=== PATIENT | male | born 1950 | race Caucasian/White ===

== ENCOUNTER 2016-12-25 07:07 | Day surgery (SDC) | payer MEDICAID ==
[2016-12-20 13:01] VITALS: BMI 28.5
[~2016-12-25 07:07] MED LIST: LACTATED RINGERS 1,000 ML IV SCH; LIDOCAINE 1% 20 ML VIAL (10MG/ML) FOR IV START INTRADERMA PRN
[2016-12-25 07:25] VITALS: TEMP 97
[2016-12-25 07:28] LABS: Glucose,Whole Blood 72 mg/dL (75-99)
[2016-12-25] MEDS ORDERED: PROPOFOL 10 MG/ML 20 ML VIAL IV ONE (08:14)
[2016-12-25] MEDS ORDERED: LIDOCAINE 1% INJ 10MG/ML (20 ML MDV) ONE (08:14)
[2016-12-25 08:23] LABS: Glucose,Whole Blood 73 mg/dL (75-99)
--- NOTE | 2016-12-25 08:40 | P.PCN ---
Date of Procedure: 12/25/16 Procedure(s) Performed: Procedure: Total colonoscopy. Preoperative diagnosis: Screening for neoplasia, patient has history of polyps. Postoperative diagnosis: Mild diverticulosis with no evidence of acute diverticulitis, strictures, polyps or cancer. Preparation: HalfLytely prep. Sedation: Was provided by anesthesia. Brief clinical history: The patient is a 66-year-old male who is scheduled for this evaluation was screening for neoplasia because of history of polyps. His last exam was in February 2011. He has no abdominal complaints, bleeding or anemia. Procedure: With the patient on his left lateral decubitus position and after informed consent and adequate sedation, the perianal area was inspected and it did not show any fissures or fistulas. There were no masses felt on digital rectal examination. The Olympus CFQ 160L video colonoscope was then inserted in the rectum in the usual fashion and advanced to the cecum. The preparation on the right side and around the hepatic flexure was less than ideal with sticky fecal material that would not wash off totally. Diminutive polyps or superficial pathology could have been missed in that area. There were several small diverticular orifices seen scattered on the right side but I did not see any evidence of acute diverticulitis or strictures. There was no obvious polyps or tumors seen. I retroflexed endoscope in the rectum before the endoscope was withdrawn. The patient tolerated the procedure well. Plan: The patient was reassured. Discussed dietary measures. He will follow up with you as planned and I recommended repeat exam in 5 years.
[2016-12-25 08:57] VITALS: RESP 16
[2016-12-25 09:12] VITALS: BP 127/80; PULSE 62
== END 2016-12-25 09:24 | disposition home or self-care (01) ==
LOC: ORWHC2ENDO 07:07
DX: Z12.11 Encounter for screening for malignant neoplasm of colon (principal); K57.30 Diverticulosis of large intestine without perforation or abscess without bleeding; E11.9 Type 2 diabetes mellitus without complications; I10 Essential (primary) hypertension; E78.5 Hyperlipidemia, unspecified; F32.9 Major depressive disorder, single episode, unspecified; F17.200 Nicotine dependence, unspecified, uncomplicated; Z86.010 Personal history of colon polyps; Z79.84 Long term (current) use of oral hypoglycemic drugs; Z79.4 Long term (current) use of insulin; Z79.899 Other long term (current) drug therapy
CPT/HCPCS: J2001; J2704; G0105; 45378

== ENCOUNTER → 2017-07-20 | Outpatient (CLI) | payer MEDICAID ==
[2017-07-20 10:42] LABS: ALT 37 U/L (21-72); AST 21 U/L (17-59); Alkaline Phosphatase 60 U/L (38-126); Anion Gap 10 mmol/L; Blood Urea Nitrogen 13 mg/dL (9-20); Calcium 9.5 mg/dL (8.4-10.2); Carbon Dioxide 27 mmol/L (22-30); Chloride 105 mmol/L (98-107); Cholesterol 131 mg/dL (<200); Creatine Kinase 145 U/L (55-170); Glucose 121 mg/dL (74-99); HDL Cholesterol 49 mg/dL (40-60); Non-African American GFR(MDRD) >60 (>60 ml/min/1.73 sqM); Potassium 4.7 mmol/L (3.5-5.1); Sodium 142 mmol/L (137-145); Total Bilirubin 0.4 mg/dL (0.2-1.3); Total Protein 7.1 g/dL (6.3-8.2)
[2017-07-20 13:52] LABS: Hemoglobin A1C 8.5 % (4.2-6.1)
== END | disposition home or self-care (01) ==
LOC: LABWHC1 09:10
PROVIDERS: ATTEND Family Medicine
DX: E11.9 Type 2 diabetes mellitus without complications (principal); E78.00 Pure hypercholesterolemia, unspecified; M25.50 Pain in unspecified joint
CPT/HCPCS: 36415; 80053; 80061; 82550; 83036

== ENCOUNTER → 2018-08-02 | Outpatient (CLI) | payer MEDICAID ==
[2018-08-02 10:48] LABS: HCT 49.1 % (39.0-53.0); HGB 16.2 gm/dL (13.0-17.5); MCH 31.8 pg (25.0-35.0); MCV 96.4 fL (80.0-100.0); Mean Platelet Volume 6.6; Platelet Count 244 k/uL (150-450); RBC 5.09 m/uL (4.30-5.90); RDW 12.1 % (11.5-15.5); WBC 6.9 k/uL (3.8-10.6)
[2018-08-02 11:11] LABS: ALT 27 U/L (21-72); AST 19 U/L (17-59); Albumin 4.1 g/dL (3.5-5.0); Alkaline Phosphatase 57 U/L (38-126); Anion Gap 7 mmol/L; Blood Urea Nitrogen 15 mg/dL (9-20); Calcium 9.6 mg/dL (8.4-10.2); Carbon Dioxide 29 mmol/L (22-30); Chloride 106 mmol/L (98-107); Cholesterol 133 mg/dL (<200); Creatine Kinase 108 U/L (55-170); Glucose 113 mg/dL (74-99); HDL Cholesterol 41 mg/dL (40-60); LDL Cholesterol,Calculated 60 mg/dL (0-99); Potassium 4.8 mmol/L (3.5-5.1); Sodium 142 mmol/L (137-145); Total Bilirubin 0.4 mg/dL (0.2-1.3); Triglycerides 159 mg/dL (<150)
[2018-08-02 19:32] LABS: Hemoglobin A1C 7.8 % (4.0-6.0)
== END ==
LOC: LABWHC1 09:47
PROVIDERS: ATTEND Family Medicine
DX: E11.9 Type 2 diabetes mellitus without complications (principal); I10 Essential (primary) hypertension; E78.00 Pure hypercholesterolemia, unspecified; R35.1 Nocturia; M25.50 Pain in unspecified joint
CPT/HCPCS: 36415; 80053; 80061; 82550; 83036; 84153; 85027

== ENCOUNTER 2018-11-07 21:02 | Inpatient (IN) | payer MEDICARE, OTHER ==
[2018-11-07] MEDS ORDERED: DIPH,PERTUS(ACELL)TETVAC-LF 0.5 ML VIAL IM ONE (22:12)
--- NOTE | 2018-11-07 22:20 | ED ---
General Adult HPI - General Chief complaint: Fall Stated complaint: Fall, Poss broken leg, head injury Source: patient, family Mode of arrival: ambulatory Limitations: no limitations - Related Data Home Medications Medication Instructions Recorded Confirmed Insulin Glargine,Hum.rec.anlog 55 unit SQ HS 12/20/16 11/07/18 [Lantus Solostar] PARoxetine [Paxil] 20 mg PO HS 12/20/16 11/07/18 Pravastatin Sodium [Pravachol] 40 mg PO HS 12/20/16 11/07/18 metFORMIN HCL [Glucophage] 1,000 mg PO BID 12/20/16 11/07/18 Aspirin EC [Ecotrin Low Dose] 40.5 mg PO DAILY 11/07/18 11/07/18 Atenolol [Tenormin] 50 mg PO DAILY 11/07/18 11/07/18 Tamsulosin HCl [Flomax] 0.4 mg PO HS 11/07/18 11/07/18 Allergies Allergy/AdvReac Type Severity Reaction Status Date / Time No Known Allergies Allergy Verified 11/07/18 21:55 Review of Systems ROS Statement: Those systems with pertinent positive or pertinent negative responses have been documented in the HPI. ROS Other: All systems not noted in ROS Statement are negative. Past Medical History Past Medical History: Diabetes Mellitus, Hyperlipidemia, Hypertension History of Any Multi-Drug Resistant Organisms: None Reported Additional Past Surgical History / Comment(s): LUMBAR INJECTION. COLONOSCOPY Past Anesthesia/Blood Transfusion Reactions: No Reported Reaction Past Psychological History: Depression Smoking Status: Current every day smoker Past Alcohol Use History: None Reported Past Drug Use History: None Reported - Past Family History Mother Family Medical History: No Reported History General Exam Limitations: no limitations Course Vital Signs 11/07/18 11/07/18 11/07/18 21:19 22:10 23:03 Temperature 99.4 F Pulse Rate 73 68 69 Respiratory 18 20 20 Rate Blood Pressure 144/65 140/65 123/69 O2 Sat by Pulse 96 95 94 L Oximetry Medical Decision Making - Medical Decision Making Dictation was produced using [employer] dictation software. please excuse any grammatical, word or spelling errors. Chief Complaint: 68-year-old male past medical history of diabetes, hypertension, dyslipidemia presents after fall. History of Present Illness: Patient fell approximately 1 hour prior to arrival. He tripped over the curb. He states he landed on his right knee and hit his head. He tried to catch himself but wasnt able to. Patient complains of right knee pain. The ROS documented in this emergency department record has been reviewed and confirmed by me. Those systems with pertinent positive or negative responses have been documented in the HPI. All other systems are other negative and/or noncontributory. PHYSICAL EXAM: General Impression: Alert and oriented x3, not in acute distress HEENT: Superficial abrasion to the right forehead, extra-ocular movements intact , pupils equal and reactive to light bilaterally, mucous membranes moist. Cardiovascular: Heart regular rate and rhythm, S1&S2 audible, no murmurs, rubs or gallops Chest: Lungs clear to auscultation bilaterally, no rhonchi, no wheeze, no rales Abdomen: Bowel sounds present, abdomen soft, non-tender, non-distended, no organomegaly Musculoskeletal: Pulses present and equal in all extremities, no peripheral edema, abrasion to the right knee, there is significant knee swelling Motor: Power 5/5 bilaterally, no focal deficits noted Neurological: CN II-XII grossly intact, no focal motor or sensory deficits noted Skin: Multiple abrasions to the right hand Psych: Normal affect and mood ED course: 68-year-old male presents with head pain, the pain and hand pain after fall. Vital signs upon arrival are within acceptable limits. Laboratory evaluation obtained. Mild leukocytosis of 12.0. Coag panel unremarkable. Metabolic panel is negative. Knee x-ray shows patellar fracture with comminution. Computed tomography scan of the head and C-spine are unremarkable. Patient given IV analgesics. Discussed patient case with Dr. Hernández who recommends patient be admitted to his service. Patient be nothing by mouth at midnight. - Lab Data Result diagrams: 11/07/18 22:55 11/07/18 22:55 Lab Results 11/07/18 11/07/18 11/07/18 Range/Units 22:55 22:55 22:55 WBC 12.0 H (3.8-10.6) k/uL RBC 4.84 (4.30-5.90) m/uL Hgb 15.6 (13.0-17.5) gm/dL Hct 46.9 (39.0-53.0) % MCV 97.0 (80.0-100.0) fL MCH 32.3 (25.0-35.0) pg MCHC 33.3 (31.0-37.0) g/dL RDW 12.4 (11.5-15.5) % Plt Count 226 (150-450) k/uL Neutrophils % 77 % Lymphocytes % 14 % Monocytes % 5 % Eosinophils % 2 % Basophils % 1 % Neutrophils # 9.3 H (1.3-7.7) k/uL Lymphocytes # 1.7 (1.0-4.8) k/uL Monocytes # 0.6 (0-1.0) k/uL Eosinophils # 0.2 (0-0.7) k/uL Basophils # 0.1 (0-0.2) k/uL PT 10.9 (9.0-12.0) sec INR 1.0 (<1.2) Sodium 140 (137-145) mmol/L Potassium 4.1 (3.5-5.1) mmol/L Chloride 107 (98-107) mmol/L Carbon Dioxide 25 (22-30) mmol/L Anion Gap 8 mmol/L BUN 19 (9-20) mg/dL Creatinine 0.76 (0.66-1.25) mg/dL Est GFR (CKD-EPI)AfAm >90 (>60 ml/min/1.73 sqM) Est GFR (CKD-EPI)NonAf >90 (>60 ml/min/1.73 sqM) Glucose 151 H (74-99) mg/dL Calcium 9.2 (8.4-10.2) mg/dL Disposition Clinical Impression: Patellar fracture Disposition: ADMITTED IP TO THIS HOSP Condition: Fair Referrals: Anand Castro MD [Primary Care Provider] - 1-2 days Decision Time: 23:45
--- NOTE | 2018-11-07 22:47 | CT ---
EXAMINATION TYPE: CT brain francis gordon con DATE OF EXAM: 11/07/2018 COMPARISON: None HISTORY: fall, laceration to right side of forehead neck pain CT DLP: 1342.8 mGycm Automated exposure control for dose reduction was used. TECHNIQUE: CT scan of the head and cervical spine are performed without contrast. FINDINGS: Ventricles and sulci appear normal. There is no mass effect nor midline shift. There is n o sign of intracranial hemorrhage. Calvarium is intact. The cervical vertebra show normal spacing and alignment. Posterior elements are intact. Facet joints are normal for age. There is minor spur formation. The skull base is intact. There is no evidence of a fracture. IMPRESSION: Negative CT scan of the brain. Negative CT scan cervical spine. No fracture.
--- NOTE | 2018-11-07 22:49 | XR ---
EXAMINATION TYPE: XR knee complete RT DATE OF EXAM: 11/07/2018 COMPARISON: NONE HISTORY: Pain and swelling TECHNIQUE: 3 views FINDINGS: There is slight narrowing of the medial joint space. There is a transverse fracture of the inferior margin of the patella with separation of the fragments almost 3 cm. There is soft tissue swe lling. There is no knee joint effusion seen. IMPRESSION: Transverse fracture of the patella with significant separation of the fragments. There is comminution .
[2018-11-07] MEDS: MORPHINE SULFATE 4 MG/ML SYRINGE IVP PRN (22:50)
[2018-11-07 23:09] LABS: Basophils # (A) 0.1 k/uL (0-0.2); Basophils % (A) 1 %; Eosinophils # (A) 0.2 k/uL (0-0.7); Eosinophils % (A) 2 %; HCT 46.9 % (39.0-53.0); HGB 15.6 gm/dL (13.0-17.5); Lymphocytes # (A) 1.7 k/uL (1.0-4.8); Lymphocytes % (A) 14 %; MCH 32.3 pg (25.0-35.0); MCHC 33.3 g/dL (31.0-37.0); Mean Platelet Volume 6.8; Monocytes # (A) 0.6 k/uL (0-1.0); Monocytes % (A) 5 %; Neutrophils # (A) 9.3 k/uL (1.3-7.7); Neutrophils % (A) 77 %; Platelet Count 226 k/uL (150-450); RBC 4.84 m/uL (4.30-5.90); RDW 12.4 % (11.5-15.5)
[2018-11-07 23:13] LABS: Prothrombin Time 10.9 sec (9.0-12.0)
[2018-11-07 23:18] LABS: Anion Gap 8 mmol/L; Blood Urea Nitrogen 19 mg/dL (9-20); Calcium 9.2 mg/dL (8.4-10.2); Carbon Dioxide 25 mmol/L (22-30); Chloride 107 mmol/L (98-107); Glucose 151 mg/dL (74-99); Potassium 4.1 mmol/L (3.5-5.1); Sodium 140 mmol/L (137-145)
[2018-11-07] MEDS ORDERED: NALOXONE 0.4 MG/ML 1 ML VIAL IV PRN (23:41)
[2018-11-07] MEDS ORDERED: MORPHINE SULFATE 4 MG/ML SYRINGE IV PRN (23:41)
[2018-11-07] MEDS ORDERED: ONDANSETRON 4 MG/2 ML VIAL IVP PRN (23:41)
[2018-11-07] MEDS ORDERED: ACETAMINOPHEN TAB 325 MG TAB PO PRN (23:41)
[2018-11-08] MEDS: SODIUM CHLORIDE 0.9% 1,000 ML IV SCH ×2 (01:15→11:46)
[2018-11-08] MEDS: MORPHINE SULFATE 4 MG/ML SYRINGE IVP PRN ×2 (03:39→08:12)
[2018-11-08] MEDS: BACITRACIN OINT 1 EACH PACKET TOPICAL SCH ×5 (07:25→20:54)
[2018-11-08] MEDS: PANTOPRAZOLE 40 MG/10 ML VIAL IV SCH (08:29)
[2018-11-08] MEDS ORDERED: HYDROmorphone 0.5 MG/0.5 ML SYRINGE IM PRN (10:01)
--- NOTE | 2018-11-08 10:07 | P.HPOR ---
History of Present Illness H&P Date: 11/08/18 Chief Complaint: Right patella fracture Patient evaluated at bedside today, he is on the MedSurg floor. He reported to [facility] emergency room last night after falling in a parking lot [facility] [employer] [facility] He states he tripped over the curb and fell directly on the right knee. He scraped up the right hand and did hit his head. Upon arrival to the emergency room, proper imaging and lab tests were done. Images demonstrated a transverse displaced right patellar fracture. Dr. Edgar lindquist my attending physician was contacted, case was discussed. She was admitted under our care with plan for likely surgical intervention. Patient's resting comfortably, he notes pain in the right knee with movement. He has minimal discomfort to the right hand. He notes some discomfort over the forehead where he hit his head. CT showed no acute processes. Patient denies any previous surgery involving the right lower extremity. Patient currently denies any chest pain, shortness of breath, fever or chills. Review of Systems Constitutional: Reports as per HPI Past Medical History Past Medical History: Diabetes Mellitus, Hyperlipidemia, Hypertension History of Any Multi-Drug Resistant Organisms: None Reported Additional Past Surgical History / Comment(s): LUMBAR INJECTION. COLONOSCOPY Past Anesthesia/Blood Transfusion Reactions: No Reported Reaction Past Psychological History: Depression Smoking Status: Current every day smoker Past Alcohol Use History: None Reported Additional Past Alcohol Use History / Comment(s): SMOKES 1 PPD SINCE AGE 15 Past Drug Use History: None Reported - Past Family History Mother Family Medical History: No Reported History Medications and Allergies Home Medications Medication Instructions Recorded Confirmed Type Insulin Glargine,Hum.rec.anlog 55 unit SQ HS 12/20/16 11/07/18 History [Lantus Solostar] PARoxetine [Paxil] 20 mg PO HS 12/20/16 11/07/18 History Pravastatin Sodium [Pravachol] 40 mg PO HS 12/20/16 11/07/18 History metFORMIN HCL [Glucophage] 1,000 mg PO BID 12/20/16 11/07/18 History Aspirin EC [Ecotrin Low Dose] 40.5 mg PO DAILY 11/07/18 11/07/18 History Atenolol [Tenormin] 50 mg PO DAILY 11/07/18 11/07/18 History Tamsulosin HCl [Flomax] 0.4 mg PO HS 11/07/18 11/07/18 History Allergies Allergy/AdvReac Type Severity Reaction Status Date / Time No Known Allergies Allergy Verified 11/07/18 21:55 Physical Examination Right lower extremity: Small abrasion over the anterior lateral aspect of the right knee. Obvious effusion present over the knee. Patient is unable to straight leg raise. Tender with palpation of the anterior portion of the knee, especially the patella. Logroll maneuver that reproduces no pain. Plantar flexion, dorsiflexion, EHL, FHL are intact. Calf is soft, no tenderness with palpation. Sensory exam to light touch throughout the extremities intact, dorsal pedis pulses 2+. Results - Labs Labs: Abnormal Lab Results - Last 24 Hours (Table) 11/07/18 11/07/18 Range/Units 22:55 22:55 WBC 12.0 H (3.8-10.6) k/uL Neutrophils # 9.3 H (1.3-7.7) k/uL Glucose 151 H (74-99) mg/dL H & H 11/07/18 Range/Units 22:55 Hgb 15.6 (13.0-17.5) gm/dL Hct 46.9 (39.0-53.0) % Coagulation 11/07/18 Range/Units 22:55 INR 1.0 (<1.2) Result Diagrams: 11/07/18 22:55 11/07/18 22:55 - Diagnostic results Knee x-ray: report reviewed, image reviewed Assessment and Plan Plan: Imaging: Views of the right knee were reviewed, along with reports. Images demonstrate a transverse fracture involving distal pole the patella with displacement. Remaining knee joint is intact. Assessment: 1. Displaced transverse right patellar fracture 2. Status post fall from standing 3. Other medical comorbidities Plan: I was able to discuss the case, including the physical exam findings and imaging studies my attending Dr. Hernández. Our plan is to proceed with surgical intervention on 11/09/2018. We will plan to proceed with a right knee partial patellectomies with patellar tendon repair. Risks and benefits of the procedure were discussed with the patient, this including but not excluding infection, blood loss, pain and stiffness, malunion of bone, and nonunion of bone, need for further surgery, blood clot development. Patient is in good understanding and would like to proceed with surgery. Obtain consent Nothing by mouth after midnight Nonweightbearing right lower extremity Pain control GI and DVT prophylaxis per medical recommendations Further recommendations to follow Time with Patient: Less than 30
[2018-11-08] MEDS: NICOTINE 21MG/24HR PATCH TRANSDERM SCH (11:45)
--- NOTE | 2018-11-08 12:50 | P.HPIM ---
History of Present Illness H&P Date: 11/08/18 Chief Complaint: Right patella fracture This is a 68-year-old gentleman who presented to the emergency room last night post a fall in the parking lot. Patient sees Dr. Jarad tony outpatient. He has a past medical history significant for diabetes mellitus, hyper lipidemia, hypertension, depression. He is currently in every day smoker smoking approximately 1 pack a day for the last 50 years. 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 He is able to walk up and down 12 steps without any shortness of breath or chest pain. Patient was seen in the emergency room after falling in the parking lot after his grandson's basketball game. He states that he tripped over the curb and fell directly onto his right knee. He scraped up his right hand and did hit his head. Upon arrival to the emergency room, CT of the head was negative. X-ray of the leg demonstrated a transverse displaced right patella tear fracture. Patient is scheduled for a surgical intervention tomorrow. At this time patient is resting comes really in bed he does no pain to the right knee with movement. He does have minimal discomfort to the right hand and some discomfort over his forehead. Patient denies any previous surgeries. Patient did have a colonoscopy done in the past and has not had any issues with anesthesia. Patient denies any chest pain, shortness of breath, fever or chills. Review of Systems Constitutional: Denies chills, Denies fatigue, Denies fever, Denies weakness Eyes: denies blurred vision, denies pain Ears, nose, mouth and throat: Reports nasal congestion, Reports post-nasal drip , Denies headache, Denies nasal discharge, Denies sore throat Cardiovascular: Denies chest pain, Denies dyspnea on exertion, Denies edema, Denies palpitations, Denies shortness of breath Respiratory: Reports snoring, Denies cough, Denies dyspnea Gastrointestinal: Denies abdominal pain, Denies change in bowel habits, Denies diarrhea, Denies nausea, Denies vomiting Genitourinary: Denies dysuria, Denies hematuria Musculoskeletal: Reports limitation of motion, Denies myalgias Integumentary: Denies pruritus, Denies rash Neurological: Denies numbness, Denies weakness Psychiatric: Denies anxiety, Denies depression Endocrine: Denies fatigue, Denies weight change Past Medical History Past Medical History: Diabetes Mellitus, Hyperlipidemia, Hypertension History of Any Multi-Drug Resistant Organisms: None Reported Additional Past Surgical History / Comment(s): LUMBAR INJECTION. COLONOSCOPY Past Anesthesia/Blood Transfusion Reactions: No Reported Reaction Past Psychological History: Depression Smoking Status: Current every day smoker Past Alcohol Use History: None Reported Additional Past Alcohol Use History / Comment(s): SMOKES 1 PPD SINCE AGE 15 Past Drug Use History: None Reported - Past Family History Mother Family Medical History: No Reported History Medications and Allergies Home Medications Medication Instructions Recorded Confirmed Type Insulin Glargine,Hum.rec.anlog 55 unit SQ HS 12/20/16 11/07/18 History [Lantus Solostar] PARoxetine [Paxil] 20 mg PO HS 12/20/16 11/07/18 History Pravastatin Sodium [Pravachol] 40 mg PO HS 12/20/16 11/07/18 History metFORMIN HCL [Glucophage] 1,000 mg PO BID 12/20/16 11/07/18 History Aspirin EC [Ecotrin Low Dose] 40.5 mg PO DAILY 11/07/18 11/07/18 History Atenolol [Tenormin] 50 mg PO DAILY 11/07/18 11/07/18 History Tamsulosin HCl [Flomax] 0.4 mg PO HS 11/07/18 11/07/18 History Allergies Allergy/AdvReac Type Severity Reaction Status Date / Time No Known Allergies Allergy Verified 11/07/18 21:55 Physical Exam Vitals: Vital Signs Temp Pulse Pulse Resp BP BP Pulse Ox 11/08/18 07:00 98.5 F 63 18 147/60 95 11/08/18 01:00 18 124/58 11/08/18 00:51 98.4 F 63 18 95 11/08/18 00:29 70 16 136/72 95 11/07/18 23:03 69 20 123/69 94 L 11/07/18 22:10 68 20 140/65 95 11/07/18 21:19 99.4 F 73 18 144/65 96 Intake and Output 11/07/18 11/08/18 11/08/18 22:59 06:59 14:59 Output Total 200 Balance -200 Output: Urine 200 Other: Weight 91.626 kg - Constitutional General appearance: average body habitus, cooperative, no acute distress - EENT Eyes: anicteric sclerae, EOMI, PERRLA ENT: hearing grossly normal, NA/AT Ears: bilateral: normal - Neck Neck: no lymphadenopathy, normal ROM, no rigidity, no stridor, no thyromegaly - Respiratory Respiratory: bilateral: wheezing, prolonged expiration, negative: CTA, diminished, dullness, rales, rhonchi - Cardiovascular Rhythm: regular Heart sounds: normal: S1, S2 Abnormal Heart Sounds: no systolic murmur, no diastolic murmur, no rub, no S3 Gallop, no S4 Gallop, no click, no other - Gastrointestinal General gastrointestinal: normal bowel sounds, no organomegaly, soft, no tenderness - Integumentary Integumentary: normal, normal turgor - Neurologic Neurologic: CNII-XII intact - Musculoskeletal Musculoskeletal: strength equal bilaterally - Psychiatric Psychiatric: A&O x's 3, appropriate affect, intact judgment & insight Results CBC & Chem 7: 11/07/18 22:55 11/07/18 22:55 Labs: Abnormal Lab Results - Last 24 Hours (Table) 11/07/18 11/07/18 Range/Units 22:55 22:55 WBC 12.0 H (3.8-10.6) k/uL Neutrophils # 9.3 H (1.3-7.7) k/uL Glucose 151 H (74-99) mg/dL Thrombosis Risk Factor Assmnt - Choose All That Apply Each Factor Represents 1 point: Minor surgery planned Other Risk Factors: Yes Each Risk Factor Represents 2 Points: Age 61-74 years, Arthroscopic surgery, Patient confined to bed Other congenital or acquired thrombophilia - If yes, enter type in comment: No Thrombosis Risk Factor Assessment Total Risk Factor Score: 7 Thrombosis Risk Factor Assessment Level: High Risk Assessment and Plan Plan: 1. Displaced transverse patellar fracture. Surgical intervention planned for tomorrow. Knee immobilizer ordered. Continue Dilaudid 0.5 mg IM every 4 hours as needed for severe pain. [place] 5/325 mg 1 tablet by mouth every 6 hours as needed for moderate pain. Acetaminophen 650 mg by mouth every 6 hours as needed for mild pain or fever. 2. Abrasions to right hand and face. Continue bacitracin 4 times a day. 2. Diabetes mellitus. We will hold metformin. We will hold Lantus this evening. We will add NovoLog sliding scale before meals and at bedtime and Accu -Cheks before meals and at bedtime. Will add hemoglobin A1c. 3. Hypertension. We will add an EKG and a 2-D echo. Continue atenolol 50 mg daily. 4. Nicotine dependence. Nicotine patch. 5. Hyperlipidemia. Pravastatin 40 mg by mouth at bedtime 6. BPH. Continue Flomax 0.4 by mouth at bedtime 7. Depression. Continue Paxil 20 mg daily 8. GI prophylaxis. Protonix 40 mg IV daily 9. DVT prophylaxis. Pneumatic compression stockings. Discharge plan. Home with possible physical therapy. Impression and plan of care have been directed as dictated by the signing physician. Kallie Brody nurse practitioner acting as scribe for signing physician.
[2018-11-08] MEDS: HYDROmorphone 0.5 MG/0.5 ML SYRINGE IVP PRN ×2 (14:08→20:52)
[2018-11-08] MEDS: HYDROcodone/APAP 5-325MG 1 EACH TAB PO PRN (16:33)
[2018-11-08] MEDS: ATENOLOL 50 MG TAB PO SCH (16:34)
[2018-11-08 17:10] LABS: Glucose,Whole Blood 210 mg/dL (75-99)
[2018-11-08] MEDS: INSULIN ASPART 100 UNIT/ML 1 ML 10 ML VIAL SQ SCH ×2 (18:24→20:51)
[2018-11-08 20:53] LABS: Glucose,Whole Blood 237 mg/dL (75-99)
[2018-11-08] MEDS: PARoxetine 20 MG TAB PO SCH (20:53)
[2018-11-08] MEDS: TAMSULOSIN 0.4 MG CAP.ER.24H PO SCH (20:53)
[2018-11-08] MEDS: PRAVASTATIN SODIUM 40 MG TAB PO SCH (21:03)
[2018-11-08 23:37] LABS: Hemoglobin A1C 8.3 % (4.0-6.0)
[2018-11-09 07:17] LABS: Glucose,Whole Blood 228 mg/dL (75-99)
[2018-11-09] MEDS: PANTOPRAZOLE 40 MG/10 ML VIAL IV SCH (08:18)
[2018-11-09] MEDS: ATENOLOL 50 MG TAB PO SCH (08:18)
[2018-11-09] MEDS: NICOTINE 21MG/24HR PATCH TRANSDERM SCH (08:18)
[2018-11-09] MEDS: BACITRACIN OINT 1 EACH PACKET TOPICAL SCH ×4 (08:19→22:21)
[2018-11-09] MEDS: INSULIN ASPART 100 UNIT/ML 1 ML 10 ML VIAL SQ SCH ×4 (08:19→20:10)
[2018-11-09] MEDS ORDERED: MORPHINE SULFATE (PF) 0.3 MG/0.3 ML SYR ONE (09:05)
[2018-11-09] MEDS ORDERED: MIDAZOLAM 2 MG/2 ML VIAL ONE (09:05)
[2018-11-09] MEDS ORDERED: fentaNYL (PF) 50 MCG/ML 2 ML AMP ONE (09:05)
[2018-11-09] MEDS ORDERED: LACTATED RINGERS 1,000 ML IV ONE (09:12)
[2018-11-09] MEDS ORDERED: SODIUM CHLORIDE 0.9% 50 ML with ceFAZolin 2,000 MG IV ONE ×4 (09:15)
[2018-11-09] MEDS ORDERED: ceFAZolin 1,000 MG in SODIUM CHLORIDE 0.9% 1,000 ML IRRIGATION ONE (09:32)
--- NOTE | 2018-11-09 10:22 | P.PN ---
Subjective Progress Note Date: 11/09/18 This is a 68-year-old gentleman who presented to the emergency room last night post a fall in the parking lot. Patient sees Dr. Jarad tony outpatient. He has a past medical history significant for diabetes mellitus, hyper lipidemia, hypertension, depression. He is currently in every day smoker smoking approximately 1 pack a day for the last 50 years. 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 He is able to walk up and down 12 steps without any shortness of breath or chest pain. Patient was seen in the emergency room after falling in the parking lot after his grandson's basketball game. He states that he tripped over the curb and fell directly onto his right knee. He scraped up his right hand and did hit his head. Upon arrival to the emergency room, CT of the head was negative. X-ray of the leg demonstrated a transverse displaced right patella tear fracture. Patient is scheduled for a surgical intervention tomorrow. At this time patient is resting comes really in bed he does no pain to the right knee with movement. He does have minimal discomfort to the right hand and some discomfort over his forehead. Patient denies any previous surgeries. Patient did have a colonoscopy done in the past and has not had any issues with anesthesia. Patient denies any chest pain, shortness of breath, fever or chills. 11/09: Patient is currently on weight to surgery. Patient denied any discomfort or chest pain, difficulty breathing fevers or chills. Patient does not have any complaints at this time. 2-D echo and EKG were completed. Glucose was 228. Hemoglobin A1c 8.3. Review of Systems Constitutional: Denies chills, Denies fatigue, Denies fever, Denies weakness Eyes: denies blurred vision, denies pain Ears, nose, mouth and throat: Reports nasal congestion, Reports post-nasal drip , Denies headache, Denies nasal discharge, Denies sore throat Cardiovascular: Denies chest pain, Denies dyspnea on exertion, Denies edema, Denies palpitations, Denies shortness of breath Respiratory: Reports snoring, Denies cough, Denies dyspnea Gastrointestinal: Denies abdominal pain, Denies change in bowel habits, Denies diarrhea, Denies nausea, Denies vomiting Genitourinary: Denies dysuria, Denies hematuria Musculoskeletal: Reports limitation of motion, Denies myalgias Integumentary: Denies pruritus, Denies rash Neurological: Denies numbness, Denies weakness Psychiatric: Denies anxiety, Denies depression Endocrine: Denies fatigue, Denies weight change Objective - Vital Signs Vital signs: Vital Signs Temp 98.1 F 11/09/18 05:10 Pulse 77 11/09/18 05:10 Resp 16 11/09/18 05:10 BP 120/58 11/09/18 05:10 Pulse Ox 93 L 11/09/18 05:10 Intake & Output 11/08/18 11/09/18 11/09/18 18:59 06:59 18:59 Intake Total 701 Output Total 300 650 30 Balance -300 -650 671 Weight 91.26 kg Intake: IV 701 Output: Urine 300 650 Estimated Blood Loss 30 Other: # Voids 1 - Constitutional General appearance: Present: average body habitus, cooperative, no acute distress - EENT Eyes: Present: anicteric sclerae, EOMI, PERRLA ENT: Present: hearing grossly normal, NA/AT Ears: bilateral: normal - Neck Neck: Present: normal ROM - Respiratory Respiratory: bilateral: wheezing, prolonged expiration, negative: diminished, dullness, rales, rhonchi - Cardiovascular Rhythm: regular Heart sounds: normal: S1, S2 Abnormal Heart Sounds: Absent: systolic murmur, diastolic murmur, rub, S3 Gallop , S4 Gallop, click, other - Gastrointestinal General gastrointestinal: Present: normal bowel sounds, soft. Absent: tenderness - Integumentary Integumentary: Present: normal turgor - Neurologic Neurologic: Present: CNII-XII intact - Musculoskeletal Musculoskeletal: Present: gait normal, strength equal bilaterally - Psychiatric Psychiatric: Present: A&O x's 3, appropriate affect, intact judgment & insight - Labs CBC & Chem 7: 11/07/18 22:55 11/07/18 22:55 Labs: Abnormal Lab Results - Last 24 Hours (Table) 11/07/18 11/08/18 11/08/18 Range/Units 22:55 17:09 20:42 POC Glucose (mg/dL) 210 H 237 H (75-99) mg/dL Hemoglobin A1c 8.3 H (4.0-6.0) % 11/09/18 Range/Units 07:15 POC Glucose (mg/dL) 228 H (75-99) mg/dL Hemoglobin A1c (4.0-6.0) % Assessment and Plan Plan: 1. Displaced transverse patellar fracture. Surgical intervention planned for tomorrow. Knee immobilizer ordered. Continue Dilaudid 0.5 mg IM every 4 hours as needed for severe pain. [place] 5/325 mg 1 tablet by mouth every 6 hours as needed for moderate pain. Acetaminophen 650 mg by mouth every 6 hours as needed for mild pain or fever. Surgical intervention scheduled for today. 2. Abrasions to right hand and face. Continue bacitracin 4 times a day. 2. Diabetes mellitus. We will hold metformin. We will hold Lantus this evening. We will add NovoLog sliding scale before meals and at bedtime and Accu -Cheks before meals and at bedtime. Reglan A1c 8.3. 3. Hypertension. Echo and EKG completed. Continue atenolol 50 mg daily. 4. Nicotine dependence. Nicotine patch. 5. Hyperlipidemia. Pravastatin 40 mg by mouth at bedtime 6. BPH. Continue Flomax 0.4 by mouth at bedtime 7. Depression. Continue Paxil 20 mg daily 8. GI prophylaxis. Protonix 40 mg IV daily 9. DVT prophylaxis. Pneumatic compression stockings. Discharge plan. Home with possible physical therapy. Impression and plan of care have been directed as dictated by the signing physician. Kallie Brody nurse practitioner acting as scribe for signing physician.
--- NOTE | 2018-11-09 10:35 | P.OP ---
Date of Procedure: 11/09/18 Preoperative Diagnosis: Comminuted right inferior pole patella fracture Postoperative Diagnosis: Same Procedure(s) Performed: Right knee partial patellectomy with patellar tendon repair Anesthesia: spinal Surgeon: Magdiel Hernández Business Office Associate #1: Simon Barcenas Estimated Blood Loss (ml): 30 Pathology: none sent Condition: stable Disposition: PACU Indications for Procedure: Patient is a 68-year-old male who presents after falling injuring his right knee. Upon evaluation he was noted have a displaced comminuted fracture of the inferior pole of his right patella. A discussion of the risks and benefits of operative intervention was made with patient. He opted to proceed. Operative options to include partial patellectomy and patellar tendon repair were discussed. Specific risks of this procedure to include infection, neurovascular injury, development of blood clots, possible tendon rerupture, possible need for subsequent procedures was discussed. Informed consent was obtained. Operative Findings: As below Description of Procedure: The patient was brought to the operating room, and after induction of spinal anesthesia the right lower extremity was prepped and draped in normal fashion. The tourniquet was inflated to 270 mmHg. A longitudinal incision extending approximately 8 cm was made along the anterior aspect of the right patella. Skin and subcutaneous tissues were divided sharply. Electrocautery was used for hemostasis. The fracture site was encountered. It was cleaned of clot and debris. The prepatellar tissue was elevated exposing the fracture ends. The patella tendon was exposed fully. The inferior bone fragment measured approximately 2 x 3 cm. It did not involve any articular cartilage. It was elected to proceed with partial patellectomy at this point. The patellar tendon was then prepared utilizing #5 Ethibond suture in a Bennell type fashion. 2 rows were placed. 3 drill holes were then made in the patella just off the articular surface inferiorly extending to the anterior mid patella. The sutures were passed through this. These were then secured with the knee in full extension. There was good apposition of the patella and tendon. The retinacular tears were repaired were interrupted #1 Vicryl suture. The wound was irrigated normal saline. The subcutaneous tissues were reapproximated interrupted 2-0 Vicryl sutures. The skin was reprepped with 3-0 subcuticular Prolene suture. Steri-Strips were applied. A sterile dressing was applied in addition to a knee immobilizer. The tourniquet was deflated with less than 50 minutes total tourniquet time. The patient was awoken from sedation and transferred to recovery room in good condition. Blood loss was estimated at 30 mL. No complications were incurred. Sponge and needle counts were correct in the case. Roman BELLAMY assisted during major component of this case to include exposure, partial patellectomy, and patellar tendon repair.
--- NOTE | 2018-11-09 10:50 | XR ---
EXAMINATION TYPE: XR knee limited RT , 2 VIEWS DATE OF EXAM ORDERED: 11/09/2018 HISTORY: s/p right knee surgery. COMPARISON: Previous study dated 11/07/2018. FINDINGS: The patient's patellar fracture has been approximated. There is some bursal air as well as bursal fluid. IMPRESSION: SATISFACTORY REDUCTION OF THE PATIENT'S PATELLAR FRACTURE.
[2018-11-09 11:34] LABS: Glucose,Whole Blood 173 mg/dL (75-99)
[2018-11-09] MEDS: HYDROcodone/APAP 5-325MG 1 EACH TAB PO PRN ×2 (12:32→19:51)
[2018-11-09] MEDS: HYDROmorphone 0.5 MG/0.5 ML SYRINGE IVP PRN ×3 (13:38→23:26)
[2018-11-09 17:13] LABS: Glucose,Whole Blood 200 mg/dL (75-99)
[2018-11-09 19:56] LABS: Glucose,Whole Blood 269 mg/dL (75-99)
[2018-11-09] MEDS: PRAVASTATIN SODIUM 40 MG TAB PO SCH (20:10)
[2018-11-09] MEDS: TAMSULOSIN 0.4 MG CAP.ER.24H PO SCH (20:10)
[2018-11-09] MEDS: PARoxetine 20 MG TAB PO SCH (20:10)
[2018-11-10] MEDS: HYDROmorphone 0.5 MG/0.5 ML SYRINGE IVP PRN ×2 (03:29→10:49)
[2018-11-10] MEDS: HYDROcodone/APAP 5-325MG 1 EACH TAB PO PRN ×2 (06:38→12:33)
[2018-11-10 07:05] LABS: Glucose,Whole Blood 246 mg/dL (75-99)
--- NOTE | 2018-11-10 07:16 | P.PN ---
Progress Note - Text Date:11/10 Time:650am Patient is status post partial patellectomy. Patient seen this morning with VAS score of 2.no c/o of pruritus, no c/o nausea/vomiting, comfortable and doing well.
[2018-11-10] MEDS: ENOXAPARIN 40 MG/0.4 ML SYRINGE SQ SCH (07:40)
[2018-11-10] MEDS: INSULIN ASPART 100 UNIT/ML 1 ML 10 ML VIAL SQ SCH ×4 (07:40→20:59)
[2018-11-10] MEDS: NICOTINE 21MG/24HR PATCH TRANSDERM SCH (07:41)
[2018-11-10] MEDS: BACITRACIN OINT 1 EACH PACKET TOPICAL SCH ×4 (07:42→21:00)
[2018-11-10] MEDS: PANTOPRAZOLE 40 MG TABLET PO SCH (07:42)
[2018-11-10] MEDS: ATENOLOL 50 MG TAB PO SCH (07:42)
--- NOTE | 2018-11-10 09:51 | ECHOF ---
Referral Reason:pre op testing MEASUREMENTS -------- HEIGHT: 152.4 cm WEIGHT: 91.6 kg BP: RVIDd: 2.5 cm (< 3.3) IVSd: 1.3 cm (0.6 - 1.1) LVIDd: 4.0 cm (3.9 - 5.3) LVPWd: 1.5 cm (0.6 - 1.1) IVSs: 1.5 cm LVIDs: 2.3 cm LVPWs: 1.9 cm LA Diam: 4.1 cm (2.7 - 3.8) Ao Diam: 3.1 cm (2.0 - 3.7) AV Cusp: 1.7 cm (1.5 - 2.6) LA Diam: 3.8 cm (2.7 - 3.8) MV EXCURSION: 22.560 mm (> 18.000) MV EF SLOPE: 92 mm/s (70 - 150) EPSS: 0.5 cm MV E Abdullahi: 0.89 m/s MV DecT: 187 ms MV A Abdullahi: 0.87 m/s MV E/A Ratio: 1.02 RAP: 5.00 mmHg RVSP: 37.02 mmHg FINDINGS -------- Sinus rhythm. This was a technically good study. LV size, wall thickness and systolic function are normal, with an EF greater than 55%. The left kyra tricular size is normal. The right ventricle is normal in size. The left atrium is mildly dilated. The right atrial size is normal. The aortic valve is trileaflet, and appears structurally normal. No aortic stenosis or regurgitation. Mild mitral regurgitation is present. Mild tricuspid regurgitation present. There is mild pulmonary hypertension. The right ventricular systolic pressure, as measured by Doppler, is 37.02mmHg. There is no pulmonic regurgitation present. The aortic root size is normal. There is no pericardial effusion. CONCLUSIONS -------- 1. LV size, wall thickness and systolic function are normal, with an EF greater than 55%. 2. The left ventricular size is normal. 3. The right ventricle is normal in size. 4. The left atrium is mildly dilated. 5. The right atrial size is normal. 6. The aortic valve is trileaflet, and appears structurally normal. No aortic stenosis or regurgitati on. 7. Mild mitral regurgitation is present. 8. Mild tricuspid regurgitation present. 9. There is mild pulmonary hypertension. 10. The right ventricular systolic pressure, as measured by Doppler, is 37.02mmHg. 11. There is no pulmonic regurgitation present. 12. The aortic root size is normal. 13. There is no pericardial effusion. FOOD COUNTER ATTENDANT: Gertrude Gandara RDCS
[2018-11-10] MEDS ORDERED: MAGNESIUM HYDROXIDE 2,400 MG/10 ML CUP PO PRN ×2 (11:27→13:55)
[2018-11-10] MEDS: DOCUSATE 100 MG CAP PO SCH (11:43)
[2018-11-10 12:15] LABS: Glucose,Whole Blood 204 mg/dL (75-99)
--- NOTE | 2018-11-10 14:42 | P.PN ---
<Yany Dasilva A - Last Filed: 11/10/18 14:36> Subjective Progress Note Date: 11/10/18 This is a 68-year-old gentleman who presented to the emergency room last night post a fall in the parking lot. Patient sees Dr. Jarad tony outpatient. He has a past medical history significant for diabetes mellitus, hyper lipidemia, hypertension, depression. He is currently in every day smoker smoking approximately 1 pack a day for the last 50 years. 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 He is able to walk up and down 12 steps without any shortness of breath or chest pain. Patient was seen in the emergency room after falling in the parking lot after his grandson's basketball game. He states that he tripped over the curb and fell directly onto his right knee. He scraped up his right hand and did hit his head. Upon arrival to the emergency room, CT of the head was negative. X-ray of the leg demonstrated a transverse displaced right patella tear fracture. Patient is scheduled for a surgical intervention tomorrow. At this time patient is resting comes really in bed he does no pain to the right knee with movement. He does have minimal discomfort to the right hand and some discomfort over his forehead. Patient denies any previous surgeries. Patient did have a colonoscopy done in the past and has not had any issues with anesthesia. Patient denies any chest pain, shortness of breath, fever or chills. 11/09: Patient is currently on wait to surgery. Patient denied any discomfort or chest pain, difficulty breathing fevers or chills. Patient does not have any complaints at this time. 2-D echo and EKG were completed. Glucose was 228. Hemoglobin A1c 8.3. 11/10: Yesterday, patient underwent right knee partial patellectomies with patellar tendon repair with Dr. Hernández. Patient states pain is currently controlled but he did have some problems last evening as he did not request medication early enough and pain was out of control. Blood sugars have been elevated for which Levemir started at 15 units. We will gradually increase as patient is able to tolerate diet. He denies any nausea. He states he has been ambulating with walker. He denies any chest pain or shortness of breath. Echocardiogram reveals EF of greater than 55%, mild mitral regurgitation, mild tricuspid regurgitation, mild pulmonary hypertension. Incentive spirometry added. Review of Systems Constitutional: Denies chills, Denies fatigue, Denies fever, Denies weakness Eyes: denies blurred vision, denies pain Ears, nose, mouth and throat: Reports nasal congestion, Reports post-nasal drip , Denies headache, Denies nasal discharge, Denies sore throat Cardiovascular: Denies chest pain, Denies dyspnea on exertion, Denies edema, Denies palpitations, Denies shortness of breath Respiratory: Reports snoring, Denies cough, Denies dyspnea Gastrointestinal: Denies abdominal pain, Denies change in bowel habits, Denies diarrhea, Denies nausea, Denies vomiting Genitourinary: Denies dysuria, Denies hematuria Musculoskeletal: Reports limitation of motion, Denies myalgias Integumentary: Denies pruritus, Denies rash Neurological: Denies numbness, Denies weakness Psychiatric: Denies anxiety, Denies depression Endocrine: Denies fatigue, Denies weight change, reports abnormal blood sugar Objective - Vital Signs Vital signs: Vital Signs Temp 98.3 F 11/10/18 05:00 Pulse 84 11/10/18 05:00 Resp 16 11/10/18 05:00 BP 139/73 11/10/18 05:00 Pulse Ox 94 L 11/10/18 05:00 Intake & Output 11/09/18 11/10/18 11/10/18 18:59 06:59 18:59 Intake Total 751 1440 Output Total 730 600 Balance 21 840 Intake: IV 751 Oral 1440 Output: Urine 700 600 Estimated Blood Loss 30 Other: Voiding Method Bedside Commode Urinal # Voids 1 - Exam General appearance: Present: average body habitus, cooperative, no acute distress - EENT Eyes: Present: anicteric sclerae, EOMI, PERRLA ENT: Present: hearing grossly normal, NA/AT Ears: bilateral: normal - Neck Neck: Present: normal ROM - Respiratory Respiratory: bilateral: wheezing, prolonged expiration, negative: diminished, dullness, rales, rhonchi - Cardiovascular Rhythm: regular Heart sounds: normal: S1, S2 Abnormal Heart Sounds: Absent: systolic murmur, diastolic murmur, rub, S3 Gallop , S4 Gallop, click, other - Gastrointestinal General gastrointestinal: Present: normal bowel sounds, soft. Absent: tenderness - Integumentary Integumentary: Present: normal turgor - Neurologic Neurologic: Present: CNII-XII intact - Musculoskeletal Musculoskeletal: Present: strength equal bilaterally, [place]salan wrap and knee immobilizer in place to the right leg - Psychiatric Psychiatric: Present: A&O x's 3, appropriate affect, intact judgment & insight - Labs CBC & Chem 7: 11/07/18 22:55 11/07/18 22:55 Labs: Abnormal Lab Results - Last 24 Hours (Table) 11/09/18 11/09/18 11/09/18 Range/Units 11:33 17:12 19:55 POC Glucose (mg/dL) 173 H 200 H 269 H (75-99) mg/dL 11/10/18 Range/Units 07:05 POC Glucose (mg/dL) 246 H (75-99) mg/dL Assessment and Plan Plan: 1. Displaced transverse patellar fracture status post right knee patellectomy and patellar tendon repair. Knee immobilizer. Continue Dilaudid 0.5 mg IM every 4 hours as needed for severe pain. [place] 5/325 mg 1 tablet by mouth every 6 hours as needed for moderate pain. Acetaminophen 650 mg by mouth every 6 hours as needed for mild pain or fever. Incentive spirometry to reduce incidence of atelectasis and hospital-acquired pneumonia. 2. Abrasions to right hand and face. Continue bacitracin 4 times a day. 2. Diabetes mellitus type II, uncontrolled with hyperglycemia. We will hold metformin. Start Levemir 15 units at bedtime, continue NovoLog sliding scale before meals and at bedtime and Accu-Cheks before meals and at bedtime. Reglan A1c 8.3. 3. Hypertension. Echo and EKG completed. Continue atenolol 50 mg daily. 4. Nicotine dependence. Nicotine patch. 5. Hyperlipidemia. Pravastatin 40 mg by mouth at bedtime 6. BPH. Continue Flomax 0.4 by mouth at bedtime 7. Recurrent depression. Continue Paxil 20 mg daily 8. GI prophylaxis. Protonix 40 mg IV daily 9. DVT prophylaxis. Pneumatic compression stockings. Discharge plan. Home with possible physical therapy. Impression and plan of care have been directed as dictated by the signing physician. Yany Dasilva nurse practitioner acting as scribe for signing physician. <Michelle Tarango - Last Filed: 11/11/18 13:53> Objective - Vital Signs Vital signs: Vital Signs Temp 98.4 F 11/11/18 11:57 Pulse 70 11/11/18 11:57 Resp 16 11/11/18 11:57 BP 136/75 11/11/18 11:57 Pulse Ox 94 L 11/11/18 11:57 Intake & Output 11/10/18 11/11/18 11/11/18 18:59 06:59 18:59 Intake Total 1240 Output Total 500 Balance 740 Weight 91.26 kg Intake: Oral 1240 Output: Urine 500 Other: Voiding Method Bedside Commode Bedside Commode Bedside Commode Urinal Urinal Urinal # Voids 0 2 - Labs CBC & Chem 7: 11/07/18 22:55 11/07/18 22:55 Labs: Abnormal Lab Results - Last 24 Hours (Table) 11/10/18 11/10/18 11/11/18 Range/Units 17:20 20:53 07:16 POC Glucose (mg/dL) 240 H 234 H 164 H (75-99) mg/dL 11/11/18 Range/Units 11:10 POC Glucose (mg/dL) 184 H (75-99) mg/dL Assessment and Plan Plan: I performed a history & physical examination of the patient and discussed their management with my nurse practitioner, Yany Dasilva and. I reviewed the nurse practitioner's note and agree with the documented findings and plan of care. Diabetes was uncontrolled patient takes 55 units of Lantus at home will initiate on 15 units at bedtime today to help with hyperglycemia. Patient is moving his lower extremities well no crackles heard on examination of the lungs heart sounds were heard with no murmur appreciated. Bowel sounds were present. Patient did walk with physical therapy today glucose will be checked before meals and at bedtime. The findings and the impression was discussed with the patient. I attest to the documentation by the nurse practitioner. The above note has been dictated with the help of Dragon dictation and is bound to have errors, that could misrepresent the fact.
[2018-11-10 17:21] LABS: Glucose,Whole Blood 240 mg/dL (75-99)
--- NOTE | 2018-11-10 18:39 | P.PN ---
Subjective Progress Note Date: 11/10/18 Principal diagnosis: Status post right partial patellectomy with patellar tendon repair Patient evaluated today bedside, he has family present. Slight increase in pain , this has improved. Denies any chest pain or shortness of breath. Objective - Vital Signs Vital signs: Vital Signs Temp 98 F 11/10/18 12:29 Pulse 72 11/10/18 12:29 Resp 16 11/10/18 12:29 BP 147/77 11/10/18 12:29 Pulse Ox 97 11/10/18 12:29 Intake & Output 11/09/18 11/10/18 11/10/18 18:59 06:59 18:59 Intake Total 751 1440 Output Total 730 600 Balance 21 840 Intake: IV 751 Oral 1440 Output: Urine 700 600 Estimated Blood Loss 30 Other: Voiding Method Bedside Commode Bedside Commode Urinal Urinal # Voids 1 0 - Exam Right lower extremity: Initial postoperative Bandage was removed, incisions clean, dry and intact. Distal neurovascular exam is intact, calf is soft, no tenderness with palpation. - Labs CBC & Chem 7: 11/07/18 22:55 11/07/18 22:55 Labs: Abnormal Lab Results - Last 24 Hours (Table) 11/09/18 11/10/18 11/10/18 Range/Units 19:55 07:05 12:14 POC Glucose (mg/dL) 269 H 246 H 204 H (75-99) mg/dL 11/10/18 Range/Units 17:20 POC Glucose (mg/dL) 240 H (75-99) mg/dL Assessment and Plan Plan: Assessment: 1. Postop day #1 status post right knee partial patellectomy with patellar tendon repair Plan: Pain control, continue current medication GI and DVT prophylaxis, continue current medication Weight-bear as tolerated with brace, utilize walker. Patient will need walker for home, prescription was placed today. Medical recommendations Discharge planning: Patient will be discharged home tomorrow Time with Patient: Less than 30
[2018-11-10] MEDS: PARoxetine 20 MG TAB PO SCH (21:00)
[2018-11-10] MEDS: PRAVASTATIN SODIUM 40 MG TAB PO SCH (21:00)
[2018-11-10] MEDS ORDERED: INSULIN DETEMIR 100 UNIT/ML 10 ML VIAL SQ SCH (21:00)
[2018-11-10] MEDS: TAMSULOSIN 0.4 MG CAP.ER.24H PO SCH (21:00)
[2018-11-10 21:07] LABS: Glucose,Whole Blood 234 mg/dL (75-99)
[2018-11-11 05:37] VITALS: RESP 16
[2018-11-11] MEDS: HYDROcodone/APAP 5-325MG 1 EACH TAB PO PRN ×2 (06:03→12:50)
[2018-11-11 07:17] LABS: Glucose,Whole Blood 164 mg/dL (75-99)
[2018-11-11] MEDS: PANTOPRAZOLE 40 MG TABLET PO SCH (08:13)
[2018-11-11] MEDS: DOCUSATE 100 MG CAP PO SCH (08:13)
[2018-11-11] MEDS: NICOTINE 21MG/24HR PATCH TRANSDERM SCH (08:13)
[2018-11-11] MEDS: ENOXAPARIN 40 MG/0.4 ML SYRINGE SQ SCH (08:13)
[2018-11-11] MEDS: INSULIN ASPART 100 UNIT/ML 1 ML 10 ML VIAL SQ SCH ×2 (08:13→12:47)
[2018-11-11] MEDS: ATENOLOL 50 MG TAB PO SCH (08:13)
[2018-11-11] MEDS: BACITRACIN OINT 1 EACH PACKET TOPICAL SCH (08:13)
[2018-11-11 11:11] LABS: Glucose,Whole Blood 184 mg/dL (75-99)
[2018-11-11 11:57] VITALS: BP 136/75; PULSE 70; TEMP 98.4
--- NOTE | 2018-11-11 12:43 | P.PN ---
<Yany Dasilva A - Last Filed: 11/11/18 12:34> Subjective Progress Note Date: 11/11/18 This is a 68-year-old gentleman who presented to the emergency room last night post a fall in the parking lot. Patient sees Dr. Jarad tony outpatient. He has a past medical history significant for diabetes mellitus, hyper lipidemia, hypertension, depression. He is currently in every day smoker smoking approximately 1 pack a day for the last 50 years. 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 He is able to walk up and down 12 steps without any shortness of breath or chest pain. Patient was seen in the emergency room after falling in the parking lot after his grandson's basketball game. He states that he tripped over the curb and fell directly onto his right knee. He scraped up his right hand and did hit his head. Upon arrival to the emergency room, CT of the head was negative. X-ray of the leg demonstrated a transverse displaced right patella tear fracture. Patient is scheduled for a surgical intervention tomorrow. At this time patient is resting comes really in bed he does no pain to the right knee with movement. He does have minimal discomfort to the right hand and some discomfort over his forehead. Patient denies any previous surgeries. Patient did have a colonoscopy done in the past and has not had any issues with anesthesia. Patient denies any chest pain, shortness of breath, fever or chills. 11/09: Patient is currently on wait to surgery. Patient denied any discomfort or chest pain, difficulty breathing fevers or chills. Patient does not have any complaints at this time. 2-D echo and EKG were completed. Glucose was 228. Hemoglobin A1c 8.3. 11/10: Yesterday, patient underwent right knee partial patellectomies with patellar tendon repair with Dr. Hernández. Patient states pain is currently controlled but he did have some problems last evening as he did not request medication early enough and pain was out of control. Blood sugars have been elevated for which Levemir started at 15 units. We will gradually increase as patient is able to tolerate diet. He denies any nausea. He states he has been ambulating with walker. He denies any chest pain or shortness of breath. Echocardiogram reveals EF of greater than 55%, mild mitral regurgitation, mild tricuspid regurgitation, mild pulmonary hypertension. Incentive spirometry added. 11/11: Patient has been afebrile, pulse ox 90-97% on room air, heart rate running in the 70s, blood pressure 147/72. Blood sugar this morning was 164 and lunch 184. Patient is tentatively scheduled for discharge today from orthopedics. The pain is currently controlled. He is working well with physical therapy. We are going to adjust insulin and increased to 20 and plan for him to start this at home versus his normal dose of 55. Metformin will be resumed for home. Patient is to follow-up with Dr. Zi Castro and 3 days regarding blood sugar control. Review of Systems Constitutional: Denies chills, Denies fatigue, Denies fever, Denies weakness Eyes: denies blurred vision, denies pain Ears, nose, mouth and throat: Reports nasal congestion, Reports post-nasal drip , Denies headache, Denies nasal discharge, Denies sore throat Cardiovascular: Denies chest pain, Denies dyspnea on exertion, Denies edema, Denies palpitations, Denies shortness of breath Respiratory: Reports snoring, Denies cough, Denies dyspnea Gastrointestinal: Denies abdominal pain, Denies change in bowel habits, Denies diarrhea, Denies nausea, Denies vomiting Genitourinary: Denies dysuria, Denies hematuria Musculoskeletal: Reports limitation of motion, Denies myalgias Integumentary: Denies pruritus, Denies rash Neurological: Denies numbness, Denies weakness Psychiatric: Denies anxiety, Denies depression Endocrine: Denies fatigue, reports abnormal blood sugar Objective - Vital Signs Vital signs: Vital Signs Temp 98.5 F 11/11/18 05:00 Pulse 71 11/11/18 05:00 Resp 16 11/11/18 05:00 BP 147/72 11/11/18 05:00 Pulse Ox 92 L 11/11/18 05:00 Intake & Output 11/10/18 11/11/18 11/11/18 18:59 06:59 18:59 Intake Total 1240 Output Total 500 Balance 740 Weight 91.26 kg Intake: Oral 1240 Output: Urine 500 Other: Voiding Method Bedside Commode Bedside Commode Bedside Commode Urinal Urinal Urinal # Voids 0 2 - Exam General appearance: Present: average body habitus, cooperative, no acute distress - EENT Eyes: Present: anicteric sclerae, EOMI, PERRLA ENT: Present: hearing grossly normal, NA/AT Ears: bilateral: normal - Neck Neck: Present: normal ROM - Respiratory Respiratory: bilateral: wheezing, prolonged expiration, negative: diminished, dullness, rales, rhonchi - Cardiovascular Rhythm: regular Heart sounds: normal: S1, S2 Abnormal Heart Sounds: Absent: systolic murmur, diastolic murmur, rub, S3 Gallop , S4 Gallop, click, other - Gastrointestinal General gastrointestinal: Present: normal bowel sounds, soft. Absent: tenderness - Integumentary Integumentary: Present: normal turgor - Neurologic Neurologic: Present: CNII-XII intact - Musculoskeletal Musculoskeletal: Present: strength equal bilaterally, Arsalan wrap and knee immobilizer in place to the right leg in place - Psychiatric Psychiatric: Present: A&O x's 3, appropriate affect, intact judgment & insight - Labs CBC & Chem 7: 11/07/18 22:55 11/07/18 22:55 Labs: Abnormal Lab Results - Last 24 Hours (Table) 11/10/18 11/10/18 11/10/18 Range/Units 12:14 17:20 20:53 POC Glucose (mg/dL) 204 H 240 H 234 H (75-99) mg/dL 11/11/18 Range/Units 07:16 POC Glucose (mg/dL) 164 H (75-99) mg/dL Assessment and Plan Plan: 1. Displaced transverse patellar fracture status post right knee patellectomy and patellar tendon repair. Knee immobilizer. Continue [place] 5/325 mg 1 tablet by mouth every 6 hours as needed for moderate pain. Acetaminophen 650 mg by mouth every 6 hours as needed for mild pain or fever. Incentive spirometry to reduce incidence of atelectasis and hospital-acquired pneumonia. 2. Abrasions to right hand and face. Continue bacitracin 4 times a day. 2. Diabetes mellitus type II, uncontrolled with hyperglycemia. We will hold metformin and will be resumed at bedtime. Levemir will be increased to 20 units at bedtime, continue NovoLog sliding scale before meals and at bedtime and Accu-Cheks before meals and at bedtime. Reglan A1c 8.3. 3. Hypertension. Echo and EKG completed. Continue atenolol 50 mg daily. 4. Nicotine dependence. Nicotine patch. 5. Hyperlipidemia. Pravastatin 40 mg by mouth at bedtime 6. BPH. Continue Flomax 0.4 by mouth at bedtime 7. Recurrent depression. Continue Paxil 20 mg daily 8. GI prophylaxis. Protonix 40 mg IV daily 9. DVT prophylaxis. Pneumatic compression stockings. Discharge plan. Home with possible physical therapy. Impression and plan of care have been directed as dictated by the signing physician. Yany Dasilva nurse practitioner acting as scribe for signing physician. <Michelle Tarango - Last Filed: 11/11/18 13:55> Objective - Vital Signs Vital signs: Vital Signs Temp 98.4 F 11/11/18 11:57 Pulse 70 11/11/18 11:57 Resp 16 11/11/18 11:57 BP 136/75 11/11/18 11:57 Pulse Ox 94 L 11/11/18 11:57 Intake & Output 11/10/18 11/11/18 11/11/18 18:59 06:59 18:59 Intake Total 1240 Output Total 500 Balance 740 Weight 91.26 kg Intake: Oral 1240 Output: Urine 500 Other: Voiding Method Bedside Commode Bedside Commode Bedside Commode Urinal Urinal Urinal # Voids 0 2 - Labs CBC & Chem 7: 11/07/18 22:55 11/07/18 22:55 Labs: Abnormal Lab Results - Last 24 Hours (Table) 11/10/18 11/10/18 11/11/18 Range/Units 17:20 20:53 07:16 POC Glucose (mg/dL) 240 H 234 H 164 H (75-99) mg/dL 11/11/18 Range/Units 11:10 POC Glucose (mg/dL) 184 H (75-99) mg/dL Assessment and Plan Plan: I performed a history & physical examination of the patient and discussed their management with my nurse practitioner, Yany Dasilva and. I reviewed the nurse practitioner's note and agree with the documented findings and plan of care. Increase Lantus to 20 units at bedtime with instruction to follow with primary care physician for further adjustment of Lantus. Patient is moving his lower extremities well with no overlying swelling. no crackles heard on examination of the lungs heart sounds were heard with no murmur appreciated. Bowel sounds were present. Patient did walk with physical therapy today The findings and the impression was discussed with the patient. I attest to the documentation by the nurse practitioner. The above note has been dictated with the help of Dragon dictation and is bound to have errors, that could misrepresent the fact. Please excuse the errors by dictation
--- NOTE | 2018-11-11 12:49 | P.DS ---
Providers Date of admission: 11/07/18 23:59 Expected date of discharge: 11/11/18 Attending physician: Magdiel Hernández Consults: 11/08/18 10:06 Consult Physician Urgent Consulting Provider: Aydin Amezquita Consult Reason/Comments: Medical Management Do you want consulting provider notified?: Already Contacted Primary care physician: [facility] Course: Date of admission: 11/07/2018 Date of discharge: 11/11/2018 Admission diagnosis: Displaced right patella fracture Discharge diagnosis: Status post right partial patellectomy with patellar tendon repair Attending physician: Dr. Hernández Surgical procedures: Right partial patellectomy with patellar tendon repair Brief history: Patient is a 68-year-old male who presented to [facility] on 11/07/2018 after sustaining a fall in a parking lot. He was determined to have a displaced and comminuted right patellar fracture. Patient was scheduled for surgery on 11/09/2018. Hospital course: Details of patient's surgery can be found in operative report. Patient tolerated the procedure well and was subsequently transported to orthopedic floor. Patient's orthopeidc and medical care was provided daily. Patient had daily laboratory tests performed for evaluation of overall blood counts. Patient had daily physical therapy to include strengthening range of motion as well as education with walker ambulation. Patient was treated with Lovenox for their postoperative DVT prophylaxis during their inpatient stay. Patient was noted to have a relatively uneventful postoperative course. Patient reported satisfactory pain control with oral pain medications by postoperative day 0. Patient showed satisfactory progress with physical therapy. Patient moved steadily through the program and had no difficulty meeting the goals by postoperative day 1. Given patient's otherwise satisfactory course and having met physical therapy goals, plan is to discharge patient home on postoperative day 1. Discharge condition/disposition: Patient will be discharged home in stable condition. Discharge medications: Instructions are given on resumption of patient's normal daily medications per primary care recommendation, in addition patient will be prescribed [place] 5mg/325mg, aspirin 325mg. . Discharge instructions: 1. Wound care and infection precautions, keep incision dry and covered while showering, no lotions, creams, moisturizers. No soaking, tubs, pools, hottubs. Do not scrub over the incision. 2. Weight-bear as tolerated with walker / cane until follow-up. MUST UTILIZE BRACE 3. Ice and elevate when necessary. Do not exceed 20 minutes per hour with ice pack. 4. Utilize compression sleeve until seen at first follow up appointment. 7. Pain meds and anticoagulants per prescription. 8. Pain medication has potential to cause constipation. Increase oral fluid and fiber intake. Contact primary care provider if you have not had a bowel movement within 48 hours after discharge 9. No anti-inflammatory medication until discussed at first post operative visit, this including Motrin, Aleve, Mobic, Diclofenac, 10. Follow up in office at 2 weeks postop with Roman Barcenas PA-C 11. Follow up with your primary care doctor 7-10 days after discharge. 12. Contact [facility] with any questions, . Procedures: Right knee partial patellectomy with patellar tendon repair Patient Condition at Discharge: Good Plan - Discharge Summary Discharge Rx Participant: No New Discharge Prescriptions: New Nicotine 21Mg/24Hr Patch [Habitrol] 1 patch TRANSDERM DAILY #30 patch Aspirin 325 mg PO BID #30 tab Hydrocodone/Acetaminophen [[place] 5-325] 1 - 2 each PO Q6HR PRN #40 tab PRN Reason: Pain Continue metFORMIN HCL [Glucophage] 1,000 mg PO BID Pravastatin Sodium [Pravachol] 40 mg PO HS PARoxetine [Paxil] 20 mg PO HS Aspirin EC [Ecotrin Low Dose] 40.5 mg PO DAILY Atenolol [Tenormin] 50 mg PO DAILY Tamsulosin HCl [Flomax] 0.4 mg PO HS Changed Insulin Glargine,Hum.rec.anlog [Lantus Solostar] 20 unit SQ HS #0 Discharge Medication List PARoxetine [Paxil] 20 mg PO HS 12/20/16 [History] Pravastatin Sodium [Pravachol] 40 mg PO HS 12/20/16 [History] metFORMIN HCL [Glucophage] 1,000 mg PO BID 12/20/16 [History] Aspirin EC [Ecotrin Low Dose] 40.5 mg PO DAILY 11/07/18 [History] Atenolol [Tenormin] 50 mg PO DAILY 11/07/18 [History] Tamsulosin HCl [Flomax] 0.4 mg PO HS 11/07/18 [History] Aspirin 325 mg PO BID #30 tab 11/11/18 [Rx] Hydrocodone/Acetaminophen [[place] 5-325] 1 - 2 each PO Q6HR PRN #40 tab 11/11/18 [Rx] Insulin Glargine,Hum.rec.anlog [Lantus Solostar] 20 unit SQ HS #0 11/11/18 [Rx] Nicotine 21Mg/24Hr Patch [Habitrol] 1 patch TRANSDERM DAILY #30 patch 11/11/18 [ Rx] Follow up Appointment(s)/Referral(s): Magdiel Hernández MD [STAFF PHYSICIAN] - 11/17/18 11:30 am Anand Castro MD [Primary Care Provider] - 3 Days Activity/Diet/Wound Care/Special Instructions: Orthopedic discharge instructions: 1. Weight-bear as tolerated, utilize brace 2. Utilize walker when ambulating 3. Keep incision clean and dry, keep covered while showering 4. Ice and elevate often 5. Follow-up the wrist orthopedics in 1 week Discharge Disposition: HOME SELF-CARE
[2018-11-11] MEDS ORDERED: INSULIN DETEMIR 100 UNIT/ML 10 ML VIAL SQ SCH (21:00)
== END 2018-11-11 15:10 | disposition home or self-care (01) | DRG 488 ==
LOC: EC 21:02 → 3NMEDONC 23:59 → OBSVTOIN 11-10 15:13
PROVIDERS: ADMIT Orthopaedic Surgery; ATTEND Orthopaedic Surgery
PROC: 0QBD0ZZ Excision of Right Patella, Open Approach (ICD-10-PCS; principal; 2018-11-09 09:00)
PROC: 0LQQ0ZZ Repair Right Knee Tendon, Open Approach (ICD-10-PCS; principal; 2018-11-09 09:00)
DX: S82.001A Unspecified fracture of right patella, initial encounter for closed fracture (principal); F33.9 Major depressive disorder, recurrent, unspecified; E78.5 Hyperlipidemia, unspecified; I10 Essential (primary) hypertension; N40.0 Benign prostatic hyperplasia without lower urinary tract symptoms; I08.1 Rheumatic disorders of both mitral and tricuspid valves; E11.65 Type 2 diabetes mellitus with hyperglycemia; I27.20 Pulmonary hypertension, unspecified; W01.0XXA Fall on same level from slipping, tripping and stumbling without subsequent striking against object, initial encounter; F17.210 Nicotine dependence, cigarettes, uncomplicated; Z79.82 Long term (current) use of aspirin; Z79.4 Long term (current) use of insulin; Z79.899 Other long term (current) drug therapy
CPT/HCPCS: 36415; 70450; 72125; 80048; 83036; 85025; 85610; 90471; 90715; 93005; 93306; 96374; 99285

== ENCOUNTER 2022-08-29 07:01 | Day surgery (SDC) | payer MEDICARE, BC ==
[2022-08-24 16:00] VITALS: BMI 25.7
[~2022-08-29 07:01] MED LIST changes: +LIDOCAINE 1% (10MG/ML) FOR IV START INTRADERMA PRN; -LIDOCAINE 1% 20 ML VIAL (10MG/ML) FOR IV START INTRADERMA PRN; +ONDANSETRON 4 MG/2 ML VIAL IVP PRN
[2022-08-29 07:33] VITALS: RESP 16; TEMP 97.3
[2022-08-29 07:49] LABS: Glucose,Whole Blood 145 mg/dL (70-110)
[2022-08-29] MEDS ORDERED: PROPOFOL 10 MG/ML 20 ML VIAL IV ONE (08:24)
[2022-08-29] MEDS ORDERED: LIDOCAINE 2% INJ 20 MG/ML (2 ML VIAL) ONE (08:24)
--- NOTE | 2022-08-29 08:40 | P.PCN ---
Date of Procedure: 08/29/22 Procedure(s) Performed: BRIEF HISTORY: Patient is a 72-year-old pleasant white male scheduled for an elective colonoscopy as a part of screening for colon cancer and family history of colon cancer. His brother was diagnosed with colon cancer at age 48. PROCEDURE PERFORMED: Colonoscopy with snare polypectomy. PREOPERATIVE DIAGNOSIS: Screening for colon cancer and family history of colon cancer. IV sedation per Anesthesia. PROCEDURE: After informed consent was obtained, the patient, was brought into the endoscopy unit. IV sedation was administered by Anesthesia under continuous monitoring. Digital rectal examination was normal. Initially the Olympus CF-160 flexible video colonoscope was then inserted in the rectum, gradually advanced into the cecum without any difficulty. Careful examination was performed as the scope was gradually being withdrawn. Ileocecal valve and the appendiceal orifice were visualized and appeared normal. Prep was excellent. Mucosa of the cecum, had a 3 mm and 1 cm flat polyp removed by snare polypectomy. In the ascending colon there was another 5 mm flat polyp removed by snare polypectomy. In the transverse colon there was a 6 mm flat polyp removed by snare polypectomy. Rest of the ascending colon, transverse colon, descending colon, sigmoid colon, and rectum appeared normal. In the sigmoid colon there was a 3 mm polyp removed by snare polypectomy. Moderate sigmoid diverticulosis seen. Retroflexion was performed in the rectum and no lesions were seen. The patient tolerated the procedure well. IMPRESSION: 1 cm flat and 3 mm cecal polyp status post polypectomy 5 mm flat ascending colon polyp status post polypectomy 6 mm flat transverse colon polyp status post polypectomy 3 mm sigmoid polyp status post polypectomy Scattered sigmoid diverticulosis RECOMMENDATIONS: Findings of this examination were discussed with the patientas well as his family. He was advised to follow with the biopsy results. If the biopsy results and he can have a repeat colonoscopy in 3 years.].
[2022-08-29 08:59] VITALS: BP 135/67; PULSE 60
[2022-08-29 09:03] LABS: Glucose,Whole Blood 127 mg/dL (70-110)
== END 2022-08-29 09:35 | disposition home or self-care (01) ==
LOC: ORWHC2ENDO 07:01
PROVIDERS: ATTEND Internal Medicine Gastroenterology
DX: Z12.11 Encounter for screening for malignant neoplasm of colon (principal); D12.0 Benign neoplasm of cecum; D12.2 Benign neoplasm of ascending colon; D12.3 Benign neoplasm of transverse colon; D12.5 Benign neoplasm of sigmoid colon; K57.30 Diverticulosis of large intestine without perforation or abscess without bleeding; I10 Essential (primary) hypertension; E11.9 Type 2 diabetes mellitus without complications; N40.0 Benign prostatic hyperplasia without lower urinary tract symptoms; Z80.0 Family history of malignant neoplasm of digestive organs; Z79.899 Other long term (current) drug therapy; Z98.890 Other specified postprocedural states
CPT/HCPCS: 88305; 45385; J2704; J2001